=== PATIENT | male | born 1960 | race Caucasian/White ===

== ENCOUNTER 2021-02-05 12:40 | Emergency (ER) | payer BC, SELFPAY ==
[2021-02-05 12:41] VITALS: BP 185/95; PULSE 68; RESP 16; TEMP 36.2; O2SAT 98; BMI 41.3
--- NOTE | 2021-02-05 13:01 | EKG12_ITS ---
Test Reason : CP Blood Pressure : / mmHG Vent. Rate : 068 BPM Atrial Rate : 068 BPM P-R Int : 196 ms QRS Dur : 096 ms QT Int : 438 ms P-R-T Axes : -09 002 -04 degrees QTc Int : 465 ms Normal sinus rhythm Nonspecific ST and T wave abnormality Prolonged QT Abnormal ECG Confirmed by MARÍA AG, KAVEH ([id number]), production editor CLARA CORBIN ([id number]) on 02/07/2021 1:10:05 PM Referred By: ALBERTO Confirmed By:ERENDIRA DANIEL MD
--- NOTE | 2021-02-05 13:02 | ED.VIS.CHEST ---
HPI History of Present Illness Chief Complaint: Chest Pain Informant: patient Narrative Narrative: 61-year-old male from out of town visiting family presents for the evaluation of chest pain. He tells me that its been months that he has had intermittent pressure behind his sternum. Sometimes it gets worse and is more diffuse in the chest sometimes into the arms. He states over the past couple days it has been worse. He has had a prior double bypass about 5 years ago. He states that he has had a stress test and heart catheterization since that time that have been negative. He believes the heart catheterization was 2018 or 2019. He tells me that over the past couple days the pressure sensation seems to have been more frequent and worse. He notes that they were treating him for anxiety but he wanted to get a few things checked out since it seems to be worse than normal. [facility] Medical History (Updated 02/05/21 @ 14:[address] Steven Echols DO) Anxiety CAD (coronary artery disease) Hyperlipidemia Hypertension Home Medications aspirin 81 mg PO DAILY@0800 12/02/16 [History Last Taken 12/01/16] amlodipine 5 mg PO DAILY 02/05/21 [History Last Taken Unknown] cholecalciferol (vitamin D3) [Vitamin D3] 50 mcg PO DAILY 02/05/21 [History Last Taken Unknown] clonidine HCl 0.1 mg PO Q6H PRN #10 tab 02/05/21 [Rx Last Taken Unknown] coenzyme Q10 [CoQ-10] 100 mg PO DAILY 02/05/21 [History Last Taken Unknown] fluoxetine 20 mg PO DAILY 02/05/21 [History Last Taken Unknown] lisinopril 40 mg PO DAILY 02/05/21 [History Last Taken Unknown] magnesium 250 mg PO MOWEFR 02/05/21 [History Last Taken Unknown] multivitamin 1 tab PO DAILY 02/05/21 [History Last Taken Unknown] rosuvastatin 10 mg PO DAILY 02/05/21 [History Last Taken Unknown] Allergy/AdvReac Type Severity Reaction Status Date / Time No Known Allergies Allergy Verified 12/02/16 21:34 Surgical History (Updated 02/05/21 @ 13:29 by Tressa Brian) History of bilateral knee replacement History of tonsillectomy Hx of CABG Social History (Updated 02/05/21 @ 13:[address] Steven Echols DO) Smoking Status: Never smoker substance use type: does not use ROS ROS ED Constitutional Constitutional ED: Denies chills or weight loss Eyes Eyes: Denies change in vision or diplopia ENT ENT ED: Denies ear pain, rhinorrhea or sore throat Cardiovascular Cardiovascular: Reports chest pain; Denies orthopnea, palpitations or racing heartbeat Respiratory/Chest Respiratory/Chest: Denies cough, dyspnea or orthopnea Gastrointestinal Gastrointestinal: Denies abdominal pain, diarrhea, nausea or vomiting Genitourinary Genitourinary ED: Denies dysuria, hematuria or urinary frequency Musculoskeletal Musculoskeletal: Denies arthralgias or myalgias Integumentary Denies abscess or rash Neurologic Neurologic: Denies headache(s) or weakness Psychiatric Psychiatric: Denies anxiety, depression, suicidal ideation or suicidal thoughts Endocrine Endocrinology: Denies polydipsia, polyphagia or polyuria Allergic/Immunologic Allergic/Immunologic ED: Denies mouth swelling, tongue swelling or urticaria EXAM Physical Exam Const Vital Signs: 02/05/21 12:41 02/05/21 13:27 Temperature 97.2 F L Temperature Source Temporal Pulse Rate 68 Respiratory Rate 16 Respiratory Effort Normal Non-Labored Respiratory Pattern Normal Blood Pressure 185/95 H Blood Pressure Mean 125 Pulse Ox 98 Oxygen Delivery Method Room Air Positive well nourished and well developed General Appearance ED: well developed HEENT Reports normocephalic, head/scalp atraumatic and moist mucous membranes Eyes PERRL and EOMs intact bilaterally Neck no lymphadenopathy, supple and no JVD Resp normal respiratory effort and clear to auscultation bilaterally Cardio regular rate, regular rhythm and no murmurs GI normal to inspection, nondistended, normoactive bowel sounds and non-tender Palpation: soft Back/Spine no CVA tenderness and normal ROM Extremity normal to inspection General Extremety ED: Negative for edema General Extremity: Negative for edema Neuro oriented x3 and CN's II-XII intact bilaterally Sensorium / Orientation: alert Motor Exam: strength 5/5 throughout Psych mental status grossly normal Mood & Affect: Negative for depressed or tearful Skin no rashes or lesions noted and no wounds Heart Score History: Slightly/Non-Suspicious ECG: Normal Age: >45 - <65 years Risk Factors: >/= 3 Risk Factors or History of CAD Troponin: </= Normal Limit Score: 3 MDM MDM MDM Narrative Medical decision making narrative: Basic blood work is negative. Troponin high-sensitivity is 8. My interpretation of the chest x-ray is no acute process. Patient had no events on the monitor. Since being here the patient feels better and his blood pressure is coming down. Patient is frustrated and I understand because he is not able to determine if it is the anxiety that comes and increases his blood pressure that given the sensation or just his blood pressure spike and then that causes anxiety. He does have some Ativan as needed but does not like to use it. I would do a trial with him that when he feels this take his blood pressure if it is significantly elevated he can take clonidine. If that relieves his symptomology and he can take this to his doctor. (Pill in pocket technique) he is to return if worsening or concerns Lab Data Attestation: I reviewed the patient's lab results. Labs: Laboratory Results - last 24 hr 02/05/21 02/05/21 13:25 13:25 WBC 5.5 RBC 4.95 Hgb 15.4 Hct 45.6 MCV 92.1 MCH 31.1 MCHC 33.8 RDW Std Deviation 41.9 RDW Coeff of Jelani 12.3 Plt Count 185 MPV 10.2 Immature Gran % (Auto) 0.400 Neut % (Auto) 61.4 Lymph % (Auto) 21.5 [place] % (Auto) 13.5 H Eos % (Auto) 2.5 Baso % (Auto) 0.7 Absolute Neuts (auto) 3.4 Absolute Lymphs (auto) 1.18 Nucleated RBC % 0 Sodium 137 Potassium 3.9 Chloride 107 Carbon Dioxide 27.0 Anion Gap 3 L BUN 13 Creatinine 0.94 Estim Creat Clear Calc 88.29 Est GFR (MDRD) Af Amer 104 Est GFR (MDRD) Non-Af 86 BUN/Creatinine Ratio 13.8 Glucose 101 Calcium 9.3 Troponin I High Sens 8 Radiography Diagnostic Testing: Radiology Impression Chest X-Ray 02/05/21 13:40 IMPRESSION: Mild degree of increased markings at the lung bases suggestive of bibasilar atelectasis. Prior CABG. Mild cardiomegaly. Electronically Signed: Jair Anders MD at 14:05 EDT , Service support , EKG Initial EKG: Attestation: I personally reviewed and interpreted this EKG as follows: Comments: Sinus rhythm with a ventricular rate of 68 bpm. Appears grossly unchanged from EKG dated 02 December 2016 Discharge Plan Triage Chief Complaint: Chest Pain ED Provider: Steven Echols Dx/Rx/DC Orders Clinical Impression: Chest pain, Hypertension Instructions: ED Chest Pain, Uncertain Cause Prescriptions: New clonidine HCl 0.1 mg tablet 0.1 mg PO Q6H PRN (Reason: hypertension >150 mmHg Systolic) Qty: 10 RF: 0 No Action aspirin 81 MG tablet,chewable 81 mg PO DAILY@0800 RF: 0 multivitamin Tablet 1 tab PO DAILY RF: 0 lisinopril 20 mg tablet 40 mg PO DAILY RF: 0 amlodipine 5 mg tablet 5 mg PO DAILY RF: 0 fluoxetine 20 mg tablet 20 mg PO DAILY RF: 0 magnesium 250 mg Tablet 250 mg PO MOWEFR RF: 0 coenzyme Q10 [CoQ-10] 100 mg Capsule 100 mg PO DAILY RF: 0 rosuvastatin 10 mg tablet 10 mg PO DAILY RF: 0 cholecalciferol (vitamin D3) [Vitamin D3] 50 mcg (2,000 unit) Capsule 50 mcg PO DAILY RF: 0 Referrals: [facility] Doctor,Out of [NON-STAFF] - Activity Restrictions/Additional Instructions: When you get the symptoms check your blood pressure. If it is significantly elevated from your baseline taking clonidine. Monitor your blood pressure and symptoms after that. Please follow-up with your primary care doctor or your ethnology professor when you return home Disposition Disposition: Home, Self Care
--- NOTE | 2021-02-05 13:40 | RAD_ITS ---
STUDY: X-RAY CHEST REASON FOR EXAM: Male, 61 years old. Chest pain TECHNIQUE: Single AP portable view of the chest. COMPARISON: Comparison is made with prior study dated 12/02/2016. FINDINGS: EKG electrodes are seen. Mild increased markings at the lung bases suggestive of bibasilar atelectasis. There is no demonstrated pleural abnormality. Sternal cerclage wires and vascular clips are present from a prior sternotomy and coronary artery bypass graft procedure (CABG). Mild cardiomegaly. Normal mediastinum and maninder. Normal visualized pulmonary arteries. Normal visualized aortic arch and descending thoracic aorta. There are diffuse degenerative changes of the visualized thoracic spine. Normal visualized ribs, clavicles, and shoulders. There is no demonstrated abnormality of the visualized soft tissue structures of the upper abdomen. RAD/Chest 1 View (Portable) IMPRESSION: Mild degree of increased markings at the lung bases suggestive of bibasilar atelectasis. Prior CABG. Mild cardiomegaly. Electronically Signed: Jair Anders MD at 14:05 EDT , Service support ,
[2021-02-05 13:50] LABS: Absolute Lymphocyte Count 1.18 X10^3/uL (0.83-4.51); Absolute Neutrophil Count 3.4 X10^3/uL (2.0-7.7); Basophil# 0.04 X10^3/uL; Basophil% 0.7 % (0-1); Eosinophil# 0.14 X10^3/uL; Eosinophils% 2.5 % (0-5); Hematocrit 45.6 % (40-54); Hemoglobin 15.4 g/dL (13.0-16.5); Lymphocyte # 1.18 X10^3/ul (0.83-4.51); Lymphocyte % 21.5 % (19-41); Mean Corp Hgb Conc 33.8 g/dL (32-36); Mean Corpuscular Hgb 31.1 pg (27.0-32.0); Mean Corpuscular Volume 92.1 fL (80-94); Mean Platelet Vol. 10.2 fl (6.2-12.0); Monocyte# 0.74 X10^3/uL; Monocyte% 13.5 % (0-10); NRBC Flagged by Analyzer 0 % (0-5); Neutrophil # 3.38 X10^3/uL (2.7-7.7); Neutrophil % 61.4 % (47-70); Platelet Count 185 K/mm3 (150-450); RBC Distribution Width CV 12.3 % (11.6-14.6); RBC Distribution Width SD 41.9 fl (35.1-43.9); Red Blood Count 4.95 M/mm3 (4.6-6.2); White Blood Count 5.5 K/mm3 (4.4-11.0)
[2021-02-05 14:04] LABS: Anion Gap 3 (5-15); BUN 13 mg/dL (7-18); BUN/Creat Ratio 13.8 RATIO (10-20); Calcium,Total 9.3 mg/dL (8.5-10.1); Chloride 107 mmol/L (98-107); Creatinine, Serum 0.94 mg/dL (0.70-1.30); EST Glomerular Filtration Rate 86 mL/min (>60); Est Glom Filt Rate - Afr Amer 104 mL/min (>60); Estimated Creatinine Clearance 88.29 ml/min; Glucose 101 mg/dL (74-106); Potassium 3.9 mmol/L (3.5-5.1); Sodium Level 137 mmol/L (136-145); Troponin-I HS 8 pg/mL (3.0-78.0)
[2021-02-05 14:22] VITALS: BP 135/81; PULSE 57; RESP 14; O2SAT 97
== END 2021-02-05 14:23 | disposition home or self-care (01) ==
PROVIDERS: Emergency Provider Emergency Medicine
DX: R07.9 Chest pain, unspecified (principal); I11.9 Hypertensive heart disease without heart failure; I25.10 Atherosclerotic heart disease of native coronary artery without angina pectoris; E78.5 Hyperlipidemia, unspecified; F41.9 Anxiety disorder, unspecified; Z95.1 Presence of aortocoronary bypass graft; Z79.82 Long term (current) use of aspirin; Z79.899 Other long term (current) drug therapy
CPT/HCPCS: 71045; 80048; 84484; 85025; 93005; 99285